=== PATIENT | female | born 1945 | race Caucasian/White ===

== ENCOUNTER 2018-05-09 12:35 | Outpatient (CLI) | payer MEDICARE | END 2018-05-09 12:36 | disposition home or self-care (01) | LOC: BICMAMMO 12:35 | PROVIDERS: ATTEND Family Medicine | DX: Z12.31 Encounter for screening mammogram for malignant neoplasm of breast (principal); R92.1 Mammographic calcification found on diagnostic imaging of breast | CPT/HCPCS: 77063; 77067 ==

== ENCOUNTER 2019-05-10 08:03 | Outpatient (CLI) | payer MEDICARE ==
--- NOTE | 2019-05-10 09:25 | MMO ---
Bilateral MAMMO Bilat Screen DDI+DREW. CLINICAL HISTORY: Patient is 73 years old and is seen for screening. The patient has no family history of breast cancer. The patient has no personal history of cancer. VIEWS: The views performed were: bilateral craniocaudal with tomosynthesis and bilateral mediolateral oblique with tomosynthesis. FILMS COMPARED: The present examination has been compared to prior imaging studies performed at [facility] on 10/16/2014, 11/26/2015, 01/28/2017 and 05/09/2018. This study has been interpreted with the assistance of computer-aided detection. MAMMOGRAM FINDINGS: There are scattered fibroglandular densities. There are stable benign appearing calcifications seen in both breasts. There are no suspicious masses, suspicious calcifications, or new areas of architectural distortion. IMPRESSION: THERE IS NO MAMMOGRAPHIC EVIDENCE OF MALIGNANCY. A ROUTINE FOLLOW-UP MAMMOGRAM IN 1 YEAR IS RECOMMENDED. THE RESULTS OF THIS EXAM WERE SENT TO THE PATIENT. ACR BI-RADS Category 2 - Benign finding MAMMOGRAPHY NOTE: 1. A negative mammogram report should not delay a biopsy if a dominant of clinically suspicious mass is present. 2. Approximately 10% to 15% of breast cancers are not detected by mammography. 3. Adenosis and dense breasts may obscure an underlying neoplasm. Reported by: NATTY ALVES MD Electonically Signed: [id number]
== END 2019-05-10 08:04 | disposition home or self-care (01) ==
LOC: BICMAMMO 08:03
PROVIDERS: ATTEND Family Medicine
DX: Z12.31 Encounter for screening mammogram for malignant neoplasm of breast (principal)
CPT/HCPCS: 77063; 77067

== ENCOUNTER 2019-07-04 15:08 | Outpatient (CLI) | payer MEDICARE ==
--- NOTE | 2019-07-04 15:38 | ULT ---
THYROID ULTRASOUND: 07/04/19 COMPARISON: None. HISTORY: Evaluate for thyroid cyst/nodule. TECHNIQUE: Multiplanar kirkland scale sonographic imaging of the thyroid gland obtained. FINDINGS: The thyroid isthmus measures 4 mm in AP dimension. The right lobe measures 3.9 x 2.1 x 1.2 cm and the left lobe measures 3.5 x 2.0 x 1.4 cm. No nodule is noted in the region of the right lobe of thyroid gland or the thyroid isthmus. There are three hypoechoic subcentimeter nodules within the left lobe of the thyroid gland measuring up to approximately5-6 mm. No dominant thyroid nodule is noted. IMPRESSION: TI-RADS 3 - mildly suspicious. As no nodule is greater than or equal to 1.5 cm, no further follow-up is recommended. POS: WILLA
== END 2019-07-04 15:09 | disposition home or self-care (01) ==
LOC: BICULT 15:08
PROVIDERS: ATTEND Clinical Nurse Specialist Medical-Surgical
DX: E04.1 Nontoxic single thyroid nodule (principal)
CPT/HCPCS: 76536

== ENCOUNTER 2020-01-05 09:45 | Inpatient (IN) | payer MEDICARE, OTHER ==
[2020-01-04 14:27] VITALS: BMI 36.1
[2020-01-05 12:10] LABS: Hemoglobin 13.9 g/dL (12.0-16.0); Mean Corpuscular HGB CONC 33.8 g/dL (32.0-36.0); Mean Corpuscular Hemoglobin 30.2 pg (27.0-31.0); Mean Corpuscular Volume 89.3 fL (78.0-98.0); Platelet Count 226 thou/uL (130-400); RBC Distribution Width 13.1 % (11.5-14.5); Red Blood Cell (RBC) Count 4.59 mill/uL (4.20-5.40); White Blood Cell (WBC) Count 6.5 thou/uL (4.8-10.8)
[2020-01-05 12:53] LABS: Anion Gap 15 mmol/L (10-20); BUN (Urea Nitrogen) 15 mg/dL (9.8-20.1); Calc. Creatinine Clearance 0 mL/min (70-130); Calcium 8.9 mg/dL (7.8-10.44); Carbon Dioxide 21 mmol/L (23-31); Chloride 105 mmol/L (98-107); Estimated GFR-MDRD 56; Glucose 130 mg/dL (83-110); Potassium 4.5 mmol/L (3.5-5.1); Sodium 136 mmol/L (136-145)
[2020-01-05 16:40] LABS: SARS-CoV-2 MS2 Positive; SARS-CoV-2 N Gene Negative; SARS-CoV-2 S Gene Negative; SARS-CoV-2 by NAA Not Detected (NotDetected); SARS-CoV-2 orf1ab Negative
[2020-01-10] MEDS ORDERED: Vancomycin 1 GM/200 ML BAG ONE (06:14)
[2020-01-10] MEDS ORDERED: Albumin 5% 500 ML ONE (06:31)
[2020-01-10] MEDS ORDERED: Fentanyl 250 MCG/5 ML VIAL ONE (06:42)
[2020-01-10] MEDS ORDERED: Dexmedetomidine 200 MCG/2 ML VIAL ONE (06:43)
[2020-01-10] MEDS ORDERED: Midazolam HCl 5 mg/5 ml Vial ONE (06:43)
[2020-01-10] MEDS ORDERED: Heparin 10,000 UNITS/1 ML VIAL 30,000 UNITS in Sodium Chloride 0.9% 1,000 ML FS SCH (06:45)
[2020-01-10] MEDS ORDERED: Ondansetron ODT 4 MG TAB ONE (07:07)
[2020-01-10] MEDS ORDERED: Midazolam HCl 2 mg/2 ml Vial ONE (07:07)
[2020-01-10] MEDS ORDERED: PHENYLEPHRINE-NS 100 MCG/ML 10 ML SYRINGE ONE (08:27)
[2020-01-10] MEDS ORDERED: Insulin Regular 300 UNITS/3 ML VIAL ONE ×2 (08:49→12:15)
[2020-01-10] MEDS ORDERED: Isosulfan Blue 50 MG/5 ML VIAL ONE (08:49)
[2020-01-10] MEDS ORDERED: Aminocaproic Acid 5 GM/20 ML VIAL ONE (10:08)
[2020-01-10] MEDS ORDERED: Glycopyrrolate 0.2 MG/ML 5 ML SYRINGE ONE (10:08)
[2020-01-10] MEDS ORDERED: Sodium Bicarb 50 MEQ/50 ML Abboject 8.4% SYRINGE ONE (10:08)
[2020-01-10] MEDS ORDERED: Calcium Chloride 1 GM/10 ML Abboject SYRINGE ONE (10:08)
[2020-01-10] MEDS ORDERED: Heparin 5,000 UNITS/ML VIAL ONE (10:08)
[2020-01-10] MEDS ORDERED: Norepinephrine 4 MG/4 ML VIAL ONE (10:08)
[2020-01-10] MEDS ORDERED: Cardioplegic Soln 1,000 ML BAG ONE (10:08)
[2020-01-10] MEDS ORDERED: Nitroglycerin 50 MG/250 ML BOT ONE (10:08)
[2020-01-10] MEDS ORDERED: Thrombin 5000 UNITS/5 ML VIAL ONE (10:08)
[2020-01-10] MEDS ORDERED: Protamine Sulfate 250 MG/25 ML VIAL ONE (10:08)
[2020-01-10] MEDS ORDERED: Vecuronium 10 MG VIAL ONE (10:08)
[2020-01-10] MEDS ORDERED: Heparin 30,000 units/30 ml VIAL ONE (10:08)
[2020-01-10] MEDS ORDERED: Papaverine 60 MG/2 ML VIAL ONE (10:08)
[2020-01-10] MEDS ORDERED: PROPOFOL 200 MG/20 ML VIAL ONE (10:08)
[2020-01-10] MEDS ORDERED: Potassium Chloride 60 MEQ/30 ML VIAL ONE (10:08)
[2020-01-10] MEDS ORDERED: Magnesium Sulfate 1 GM/2 ML VIAL ONE (10:08)
[2020-01-10] MEDS ORDERED: Lidocaine 1% PF 5 ML VIAL ONE (10:08)
[2020-01-10] MEDS ORDERED: Dexamethasone 20 MG/5 ML VIAL ONE (10:08)
[2020-01-10] MEDS ORDERED: Lidocaine 2% PF 100 mg/5 ml Syringe ONE (10:08)
[2020-01-10] MEDS ORDERED: Ondansetron PF 4 MG/2 ML Vial ONE (10:08)
[2020-01-10] MEDS ORDERED: niCARdipine 25 MG in Sodium Chloride 0.9% 250 ML 250 ML IVPB PRN (12:03)
[2020-01-10] MEDS ORDERED: Hetastarch 6% 500 ML 500 ML IVPB PRN (12:03)
[2020-01-10] MEDS ORDERED: Nitroglycerin 50 MG/250 ML BOT 250 ML IVPB PRN (12:03)
[2020-01-10] MEDS ORDERED: Potassium Chloride 20 MEQ/100 ML PREMIX BAG IVPB PRN (12:03)
[2020-01-10] MEDS ORDERED: Acetaminophen 325 MG TAB PO PRN (12:03)
[2020-01-10] MEDS ORDERED: Mag-Al 1200 mg/1200 mg/30 ML UDCUP PO PRN (12:03)
[2020-01-10] MEDS ORDERED: Post-Op Insulin Drip Protocol IVPB ONE (12:03)
[2020-01-10] MEDS ORDERED: Bisacodyl 5 MG TAB PO PRN (12:03)
[2020-01-10] MEDS ORDERED: Bisacodyl 10 MG SUPP PR PRN (12:03)
[2020-01-10] MEDS ORDERED: hydrALAZINE 20 MG/ML VIAL SLOW IVP PRN (12:03)
[2020-01-10] MEDS ORDERED: Guaifenesin DM 100-10/5 ML UDCUP PO PRN (12:03)
[2020-01-10] MEDS ORDERED: Fentanyl 100 MCG/2 ML VIAL SLOW IVP PRN ×2 (12:03)
[2020-01-10] MEDS ORDERED: Morphine 2 MG/ML VIAL SLOW IVP PRN (12:03)
[2020-01-10] MEDS ORDERED: DOPamine 400 MG/D5W 250 ML 250 ML IVPB PRN (12:03)
[2020-01-10] MEDS ORDERED: Norepinephrine 8 MG/0.9% NS 250 ML IVPB PRN (12:03)
[2020-01-10] MEDS ORDERED: Dextrose 50% Abboject 50 ML SYRINGE SLOW IVP PRN (12:21)
[2020-01-10] MEDS ORDERED: HUMULIN R 100 UNITS in Sodium Chloride 0.9% 100 ML IVPB SCH (12:21)
[2020-01-10] MEDS ORDERED: Dextrose 5% in Water 1,000 ML IV PRN (12:21)
[2020-01-10 12:26] LABS: #Lymphocytes 1.6 thou/uL (1.20-3.40); #Monocytes 0.7 thou/uL (0.11-0.59); %Basophils 0.3 % (0.0-1.0); %Eosinophils 0.3 % (0.0-10.0); %Lymphocytes 11.6 % (21.0-51.0); %Monocytes 5.1 % (0.0-10.0); %Neutrophils 82.6 % (42.0-75.0); Hemoglobin 10.6 g/dL (12.0-16.0); Mean Corpuscular HGB CONC 33.4 g/dL (32.0-36.0); Mean Corpuscular Hemoglobin 30.6 pg (27.0-31.0); Mean Corpuscular Volume 91.7 fL (78.0-98.0); Mean Platelet Volume 6.6 fL (7.4-10.4); Platelet Count 148 thou/uL (130-400); RBC Distribution Width 12.9 % (11.5-14.5); Red Blood Cell (RBC) Count 3.47 mill/uL (4.20-5.40); White Blood Cell (WBC) Count 13.3 thou/uL (4.8-10.8)
[2020-01-10 12:30] LABS: INR-International Normal Ratio 1.3; PTT 35.4 sec (22.9-36.1); Prothrombin Time 15.8 sec (12.0-14.7)
[2020-01-10] MEDS ORDERED: Magnesium 2 GM/50 ML 2 GM in Premix Bag 1 BAG IVPB SCH (12:30)
[2020-01-10 12:45] LABS: Anion Gap 12 mmol/L (10-20); BUN (Urea Nitrogen) 12 mg/dL (9.8-20.1); Calc. Creatinine Clearance 98 mL/min (70-130); Calcium 6.9 mg/dL (7.8-10.44); Carbon Dioxide 19 mmol/L (23-31); Chloride 112 mmol/L (98-107); Estimated GFR-MDRD 72; Glucose 145 mg/dL (83-110); Potassium 4.1 mmol/L (3.5-5.1); Sodium 139 mmol/L (136-145)
[2020-01-10] MEDS: Lactated Ringer's 1,000 ML IV SCH (12:45)
[2020-01-10] MEDS: Insulin Regular 300 UNITS/3 ML VIAL SC PRN (12:46)
[2020-01-10] MEDS: CEFAZOLIN 2 GM in Premix Bag 1 BAG IVPB SCH ×2 (12:52→21:37)
--- NOTE | 2020-01-10 12:53 | RAD ---
Portable frontal chest radiograph: 01/10/2020 COMPARISON: 09/19/2013 HISTORY: Evaluate chest following open heart surgery FINDINGS: New midline sternotomy wires. New mechanical cardiac valve. Right vascular catheter present , distal tip overlying the right atrium. Postsurgical drainage catheters overlie the mediastinum and left upper hemithorax. Supine imaging limits assessment for pneumothorax and pleural fluid. No lo bar consolidation or alveolar edema. IMPRESSION: Postoperative changes as detailed above.
[2020-01-10] MEDS: HYDROcodone/Acetaminophen 5/325 mg Tablet PO PRN ×2 (17:42→21:40)
[2020-01-10] MEDS: Vancomycin 1 GM in Premix Bag 1 BAG IVPB SCH (17:43)
[2020-01-10 18:33] LABS: Potassium 4.1 mmol/L (3.5-5.1)
--- NOTE | 2020-01-10 21:02 | EKG ---
Test Reason : POST CABG Blood Pressure : / mmHG Vent. Rate : 053 BPM Atrial Rate : 053 BPM P-R Int : 254 ms QRS Dur : 100 ms QT Int : 488 ms P-R-T Axes : 088 -14 005 degrees QTc Int : 457 ms Sinus bradycardia with sinus arrhythmia with 1st degree A-V block ST abnormality, possible digitalis effect Abnormal ECG No previous ECGs available Confirmed by Saul TRAMMELL ([id number]) on 01/10/2020 9:02:28 PM Referred By: MICHAEL Confirmed By:Saul TRAMMELL
[2020-01-10] MEDS: Famotidine/PF 20 mg/2ml Vial SLOW IVP SCH (21:37)
[2020-01-10] MEDS: Ondansetron PF 4 MG/2 ML Vial IVP PRN (21:47)
[2020-01-11] MEDS: Lactated Ringer's 1,000 ML IV SCH ×2 (02:36→15:42)
[2020-01-11 04:17] LABS: #Lymphocytes 0.8 thou/uL (1.20-3.40); #Monocytes 0.8 thou/uL (0.11-0.59); #Neutrophils 12.8 thou/uL (1.40-6.50); %Lymphocytes 5.3 % (21.0-51.0); %Monocytes 5.9 % (0.0-10.0); %Neutrophils 88.9 % (42.0-75.0); Hemoglobin 8.4 g/dL (12.0-16.0); Mean Corpuscular HGB CONC 33.6 g/dL (32.0-36.0); Mean Corpuscular Hemoglobin 30.5 pg (27.0-31.0); Mean Corpuscular Volume 90.8 fL (78.0-98.0); Mean Platelet Volume 7.8 fL (7.4-10.4); Platelet Count 164 thou/uL (130-400); RBC Distribution Width 13.2 % (11.5-14.5); Red Blood Cell (RBC) Count 2.75 mill/uL (4.20-5.40); White Blood Cell (WBC) Count 14.4 thou/uL (4.8-10.8)
[2020-01-11 04:36] LABS: Anion Gap 14 mmol/L (10-20); BUN (Urea Nitrogen) 20 mg/dL (9.8-20.1); Calc. Creatinine Clearance 69 mL/min (70-130); Calcium 7.6 mg/dL (7.8-10.44); Carbon Dioxide 19 mmol/L (23-31); Chloride 109 mmol/L (98-107); Estimated GFR-MDRD 45; Glucose 112 mg/dL (83-110); Sodium 138 mmol/L (136-145)
[2020-01-11] MEDS: Vancomycin 1 GM in Premix Bag 1 BAG IVPB SCH (05:17)
[2020-01-11] MEDS: CEFAZOLIN 2 GM in Premix Bag 1 BAG IVPB SCH (05:18)
[2020-01-11] MEDS: HYDROcodone/Acetaminophen 5/325 mg Tablet PO PRN ×4 (05:18→21:07)
[2020-01-11] MEDS: Ondansetron PF 4 MG/2 ML Vial IVP PRN (06:40)
[2020-01-11] MEDS ORDERED: Insulin Glargine 18 UNITS in Pre-Filled Syringe 1 EACH SC PRN (07:11)
[2020-01-11] MEDS: Aspirin Chewable 81 MG TAB PO SCH (08:20)
[2020-01-11] MEDS: Polyethylene Glycol 3350 17 GM Packet PO SCH (08:22)
[2020-01-11] MEDS: Famotidine/PF 20 mg/2ml Vial SLOW IVP SCH ×2 (08:22→21:08)
--- NOTE | 2020-01-11 08:51 | RAD ---
CHEST 1 VIEW: INDICATION: History of open heart surgery. COMPARISON: Prior exam dated 01/10/2020. FINDINGS: Left-sided thoracostomy tube, right subclavian central venous catheter, and mediastinal drain are sta ble-appearing. Midline sternotomy changes are stable. Cardiomegaly and mild pulmonary vascular fracisco estion persist. No lamont pleural effusion or pneumothorax evident. Osseous structures are similar-a ppearing. IMPRESSION: 1. Stable cardiomegaly and mild pulmonary vascular congestion. 2. Stable tubes and lines. POS: BH
--- NOTE | 2020-01-11 10:48 | OP ---
DATE OF PROCEDURE: 01/10/2020 DIAGNOSES: 1. Aortic valve stenosis. 2. Coronary artery disease. PROCEDURES PERFORMED: 1. Aortic valve replacement, #21 Inspiris bioprosthetic valve. 2. Coronary artery bypass graft, left internal mammary artery to left anterior descending. Saphenous vein was too poor of quality to utilize for bypass grafting the posterior descending artery. ASSISTANTS: 1. Dr. Stern. 2. Dr. Summers. DESCRIPTION OF PROCEDURE: After adequate anesthesia had been obtained, the patient was prepped and draped. Dr. Stern did an endovascular vein harvest of the left greater saphenous vein, which he had marked with ultrasound. I performed a simultaneous median sternotomy, harvesting the left internal mammary artery. Following heparinization, the mammary was divided distally. It was treated with papaverine. Aorta was cannulated above pericardial reflection and the right atrium was cannulated. The patient's heart appeared somewhat full and sluggish and EF was estimated to be 35% to 40% on COLBY down from a normal ventricle on an outpatient cath. Cardiopulmonary bypass was begun and a right superior pulmonary vein stump was placed. Following this, vessels were inspected for grafting. The aorta was crossclamped and a liter of [place] cardioplegic solution given through the aortic root. A catheter was placed in the pericardium and CO2 was insufflated. PDA was inspected. However, on inspecting the vein, it was a very poor quality and too thin-walled and small to sew to the aorta. For this reason, it was elected not to graft the PDA. The LAD was opened and the left internal mammary artery was anastomosed here. Following another 300 mL of cardioplegia, the aortic root was opened and the trileaflet valve was excised and calcium debrided. A 21 Sizer fit snugly. Ethibond sutures were placed with pledgets deep to the annulus in a mattress fashion and then the valve was seated and COR-KNOT was used to secure the valve. Following this, the aorta was closed with a double layer of 5-0 Prolene suture. CO2 was vented from the aortic root prior to completing the closure and then the vent was replaced in the aortic root. With the patient in the Trendelenburg position, the cross-clamp was removed. Temporary atrial and ventricular pacing wires were placed and atrial wires were utilized. Some arterial bleeding from the anterior right ventricle pacing wire was controlled with a Prolene suture. Following full rewarming, which was somewhat slow, adding about 30 minutes to the case, the patient was weaned from cardiopulmonary bypass. Cannula was removed and protamine given systemically with both cannulation sites being secured with a 5-0 Prolene suture. It should be noted the stump had been removed earlier and was hemostatic. The mediastinal and left pleural drains were placed, following which the sternum was reapproximated with #7 interrupted wire using vancomycin paste on the sternal edges, platelet-rich blood, and platelet-poor plasma. Subcutaneous tissue and skin were closed in layers. Job ID: [id number]
[2020-01-11] MEDS: Insulin Regular 300 UNITS/3 ML VIAL SC PRN ×3 (11:32→21:13)
--- NOTE | 2020-01-11 18:17 | PRG ---
DATE OF SERVICE: 01/11/2020 SUBJECTIVE: Ms. Duran is doing well. She is extubated, awake and alert. No complaints. OBJECTIVE: VITAL SIGNS: Blood pressure 129/51 earlier. Pulse is in the 80s and sinus. LUNGS: Clear. CARDIAC: Normal S1, normal S2. ABDOMEN: Soft, nontender. EXTREMITIES: Mild edema. ASSESSMENT: 1. Status post bypass surgery x1. 2. aortic valve replacement with bioprosthetic aortic valve, #21 bioprosthetic valve. The bypass was internal mammary to the LAD. PLAN: Plan will be to continue observation. Blood pressure medicines if needed. Job ID: [id number]
[2020-01-12] MEDS: HYDROcodone/Acetaminophen 5/325 mg Tablet PO PRN ×4 (03:21→22:31)
[2020-01-12 04:28] LABS: #Lymphocytes 2.3 thou/uL (1.20-3.40); #Monocytes 1.3 thou/uL (0.11-0.59); #Neutrophils 9.7 thou/uL (1.40-6.50); %Basophils 0.2 % (0.0-1.0); %Eosinophils 0.1 % (0.0-10.0); %Lymphocytes 17.1 % (21.0-51.0); %Neutrophils 72.6 % (42.0-75.0); Hemoglobin 7.9 g/dL (12.0-16.0); Mean Corpuscular HGB CONC 33.2 g/dL (32.0-36.0); Mean Corpuscular Volume 90.5 fL (78.0-98.0); Mean Platelet Volume 7.6 fL (7.4-10.4); Platelet Count 169 thou/uL (130-400); RBC Distribution Width 13.2 % (11.5-14.5); Red Blood Cell (RBC) Count 2.65 mill/uL (4.20-5.40); White Blood Cell (WBC) Count 13.4 thou/uL (4.8-10.8)
[2020-01-12 04:49] LABS: Anion Gap 14 mmol/L (10-20); BUN (Urea Nitrogen) 29 mg/dL (9.8-20.1); Calc. Creatinine Clearance 40 mL/min (70-130); Calcium 7.9 mg/dL (7.8-10.44); Carbon Dioxide 18 mmol/L (23-31); Chloride 102 mmol/L (98-107); Estimated GFR-MDRD 24; Glucose 128 mg/dL (83-110); Hemoglobin A1c 5.9 % (4.0-6.0); Potassium 4.2 mmol/L (3.5-5.1); Sodium 130 mmol/L (136-145)
[2020-01-12] MEDS ORDERED: Mineral Oil ENEMA PR PRN (07:07)
--- NOTE | 2020-01-12 07:43 | RAD ---
XR Chest 1 View Portable History: Open-heart surgery Comparison: Radiograph prior day Findings: Heart size mildly enlarged. Small to moderate left pleural effusion. The linear opacities w ithin the left upper lobe lingula and left lower lobe are similar. Mediastinal drains are similar. Subclavian central venous catheter tip is similar. Impression: Similar examination of the chest without worsening lung aeration.
[2020-01-12] MEDS: Polyethylene Glycol 3350 17 GM Packet PO SCH (08:38)
[2020-01-12] MEDS: Famotidine 20 MG TAB PO SCH ×2 (08:38→21:01)
[2020-01-12] MEDS: Aspirin 325 mg Enteric Coated Tablet PO SCH (08:38)
[2020-01-12] MEDS: Aspirin Chewable 81 MG TAB PO SCH (08:59)
--- NOTE | 2020-01-12 10:24 | PRG ---
DATE OF SERVICE: 01/12/2020 SUBJECTIVE: Ms. Duran is doing well. She is awake and alert. States she is feeling better. OBJECTIVE: VITAL SIGNS: Her blood pressure is 130 systolic, pulse is in the 80s and sinus. LUNGS: Clear. CARDIAC: Normal S1, normal S2. ABDOMEN: Soft, nontender. EXTREMITIES: There is no significant edema. ASSESSMENT: Status post aortic valve replacement and bypass surgery, doing well. PLAN: Continue cardiac rehab. to the telemetry later when bed is available. Job ID: [id number]
[2020-01-13] MEDS: HYDROcodone/Acetaminophen 5/325 mg Tablet PO PRN ×4 (02:20→23:39)
[2020-01-13 04:25] LABS: #Lymphocytes 1.4 thou/uL (1.20-3.40); #Monocytes 0.8 thou/uL (0.11-0.59); #Neutrophils 7.7 thou/uL (1.40-6.50); %Basophils 0.2 % (0.0-1.0); %Eosinophils 0.2 % (0.0-10.0); %Neutrophils 77.5 % (42.0-75.0); Hemoglobin 8.5 g/dL (12.0-16.0); Mean Corpuscular HGB CONC 33.1 g/dL (32.0-36.0); Mean Corpuscular Hemoglobin 29.6 pg (27.0-31.0); Mean Corpuscular Volume 89.4 fL (78.0-98.0); Mean Platelet Volume 7.9 fL (7.4-10.4); Platelet Count 151 thou/uL (130-400); RBC Distribution Width 13.5 % (11.5-14.5); Red Blood Cell (RBC) Count 2.88 mill/uL (4.20-5.40)
[2020-01-13 04:45] LABS: Anion Gap 13 mmol/L (10-20); BUN (Urea Nitrogen) 29 mg/dL (9.8-20.1); Calc. Creatinine Clearance 57 mL/min (70-130); Carbon Dioxide 18 mmol/L (23-31); Chloride 104 mmol/L (98-107); Estimated GFR-MDRD 36; Glucose 155 mg/dL (83-110); Potassium 4.6 mmol/L (3.5-5.1); Sodium 130 mmol/L (136-145)
[2020-01-13] MEDS: Aspirin 325 mg Enteric Coated Tablet PO SCH (09:49)
[2020-01-13] MEDS: Aspirin Chewable 81 MG TAB PO SCH (09:49)
[2020-01-13] MEDS: Famotidine 20 MG TAB PO SCH ×2 (09:49→21:12)
[2020-01-13] MEDS: Polyethylene Glycol 3350 17 GM Packet PO SCH (09:49)
[2020-01-13] MEDS ORDERED: Metoprolol Tartrate 25 MG TAB PO SCH ×2 (12:45→21:00)
[2020-01-13] MEDS ORDERED: Losartan 25 MG TAB PO SCH (21:00)
[2020-01-14 06:02] LABS: Anion Gap 14 mmol/L (10-20); BUN (Urea Nitrogen) 26 mg/dL (9.8-20.1); Calc. Creatinine Clearance 76 mL/min (70-130); Calcium 8.2 mg/dL (7.8-10.44); Carbon Dioxide 20 mmol/L (23-31); Chloride 105 mmol/L (98-107); Estimated GFR-MDRD 49; Glucose 151 mg/dL (83-110); Potassium 4.6 mmol/L (3.5-5.1); Sodium 134 mmol/L (136-145)
[2020-01-14] MEDS: HYDROcodone/Acetaminophen 5/325 mg Tablet PO PRN ×5 (07:11→23:57)
--- NOTE | 2020-01-14 07:55 | RAD ---
PORTABLE CHEST: HISTORY: Post CABG. COMPARISON: 01/12/20 FINDINGS: Mild cardiomegaly with postop sternotomy change. Stranding in the left apical region is again noted. Lungs otherwise appear clear and unchanged. There is evidence of mild left basilar atelectasis and po ssibly a small left effusion. Central line is unchanged and overlies the SVC. IMPRESSION: Stable chest findings. POS: AGW
[2020-01-14] MEDS: Famotidine 20 MG TAB PO SCH ×2 (10:09→19:58)
[2020-01-14] MEDS: Metoprolol Tartrate 25 MG TAB PO SCH ×2 (10:09→19:59)
[2020-01-14] MEDS: Aspirin 325 mg Enteric Coated Tablet PO SCH (10:09)
[2020-01-14] MEDS: Polyethylene Glycol 3350 17 GM Packet PO SCH (10:10)
[2020-01-14] MEDS: Losartan 25 MG TAB PO SCH (19:58)
[2020-01-14] MEDS ORDERED: Losartan 25 MG TAB PO SCH (21:00)
[2020-01-15] MEDS: HYDROcodone/Acetaminophen 5/325 mg Tablet PO PRN ×4 (03:49→20:54)
[2020-01-15 04:31] LABS: Anion Gap 14 mmol/L (10-20); BUN (Urea Nitrogen) 22 mg/dL (9.8-20.1); Calc. Creatinine Clearance 86 mL/min (70-130); Calcium 8.3 mg/dL (7.8-10.44); Carbon Dioxide 22 mmol/L (23-31); Chloride 106 mmol/L (98-107); Estimated GFR-MDRD 57; Glucose 140 mg/dL (83-110); Potassium 4.6 mmol/L (3.5-5.1); Sodium 137 mmol/L (136-145)
[2020-01-15] MEDS ORDERED: Amlodipine 5 MG TAB PO SCH ×2 (05:30→09:00)
[2020-01-15] MEDS ORDERED: cloNIDine 0.1 MG TAB PO PRN (05:31)
[2020-01-15] MEDS ORDERED: Furosemide 40 MG/4 ML VIAL SLOW IVP SCH (06:45)
[2020-01-15] MEDS: Famotidine 20 MG TAB PO SCH ×2 (08:01→20:54)
[2020-01-15] MEDS: Aspirin 325 mg Enteric Coated Tablet PO SCH (08:01)
[2020-01-15] MEDS: Metoprolol Tartrate 25 MG TAB PO SCH (08:02)
[2020-01-15] MEDS: Polyethylene Glycol 3350 17 GM Packet PO SCH (08:12)
[2020-01-15] MEDS: Furosemide 40 MG TAB PO SCH (10:50)
[2020-01-15] MEDS ORDERED: Furosemide 40 MG TAB PO SCH (11:00)
[2020-01-15] MEDS ORDERED: Spironolactone 100 MG TAB PO SCH (14:00)
--- NOTE | 2020-01-15 17:13 | PRG ---
DATE OF SERVICE: 01/15/2020 SUBJECTIVE: The patient has been hypertensive through the night, 170s and 180s. Her weight this morning is 241, and she states she weighed 245 prior to admission. She has no complaints. Walking twice a day with Physical Therapy and then walking to the bathroom on her own. Her lungs are clear to auscultation. Her chest incision looks good. Her leg incision is still weeping a bit of serous fluid with no significant bruising. PLAN: At this time is for an additional dose of Lasix, this time intravenous, and if her blood pressure is better controlled today, probably consider discharge tomorrow. Job ID: [id number]
--- NOTE | 2020-01-15 18:42 | PRG ---
DATE OF SERVICE: 01/15/2020 SUBJECTIVE: Roger' blood pressure is very high this morning in the 190 systolic range, now it is 150s. She has a lot of peripheral edema and has some oozing from the tissue in her thighs. OBJECTIVE: NECK: Neck veins are normal. Carotid normal upstrokes. LUNGS: Clear. CARDIAC: Normal S1, normal S2. ABDOMEN: Soft. Nontender. EXTREMITIES: There is some oozing of clear fluid from her thigh incisions related to edema. PLAN: 1. Agree with the extra dose of diuretics. We will add spironolactone. 2. I am going to go ahead and reduce the amlodipine back to 5 mg a day as I think she has long-term problem with edema. 3. Losartan. 4. Beta-arcadio. 5. Possibly home tomorrow if she is doing well. Job ID: [id number]
[2020-01-15 19:43] VITALS: TEMP 98.2
[2020-01-15] MEDS: Losartan 25 MG TAB PO SCH (20:54)
[2020-01-16] MEDS: HYDROcodone/Acetaminophen 5/325 mg Tablet PO PRN ×4 (00:42→12:45)
[2020-01-16 04:58] LABS: Anion Gap 15 mmol/L (10-20); BUN (Urea Nitrogen) 19 mg/dL (9.8-20.1); Calc. Creatinine Clearance 81 mL/min (70-130); Carbon Dioxide 24 mmol/L (23-31); Chloride 102 mmol/L (98-107); Estimated GFR-MDRD 53; Glucose 140 mg/dL (83-110); Potassium 4.1 mmol/L (3.5-5.1); Sodium 137 mmol/L (136-145)
[2020-01-16] MEDS ORDERED: Spironolactone 25 MG TAB PO SCH (08:00)
[2020-01-16] MEDS: Aspirin 325 mg Enteric Coated Tablet PO SCH (08:07)
[2020-01-16] MEDS: Famotidine 20 MG TAB PO SCH (08:07)
[2020-01-16] MEDS: Polyethylene Glycol 3350 17 GM Packet PO SCH (08:08)
[2020-01-16] MEDS: Furosemide 40 MG TAB PO SCH (08:08)
[2020-01-16] MEDS ORDERED: Amlodipine 5 MG TAB PO SCH (09:00)
[2020-01-16 11:11] VITALS: BP 148/70
--- NOTE | 2020-01-16 13:10 | PRG ---
DATE OF SERVICE: 01/16/2020 SUBJECTIVE: Ms. Duran is doing well. She is going to be released home. She had a good diuresis yesterday. OBJECTIVE: VITAL SIGNS: Blood pressure 148/70, pulse 72. LUNGS: Clear. CARDIAC: Normal S1, normal S2. EXTREMITIES: Still mild to moderate edema. ASSESSMENT: 1. Status post aortic valve replacement and bypass surgery. 2. Hypertension, improving. PLAN: She is going to go home on, 1. Furosemide 20 mg a day. 2. Amlodipine 5 mg a day. 3. Losartan 100 mg a day. 4. Metoprolol succinate 50 mg a day. 5. Spironolactone 25 mg a day. We will ask her to have a basic metabolic profile in a couple of weeks and to follow up with us in about 3 weeks. We will call her. Job ID: [id number]
--- NOTE | 2020-01-16 14:30 | DIS ---
DATE OF ADMISSION: 01/10/2020 DATE OF DISCHARGE: 01/16/2020 This is a 74-year-old female, who was brought to the hospital and underwent an aortic valve replacement on 01/09 with a #21 Inspiris bioprosthetic valve and a coronary artery bypass graft RUIZ to LAD. Saphenous vein was such quality that it was not felt to be usable for a PDA vein graft. Her 21 valve fit very snugly in her annulus. Her postoperative course was notable for initial blood pressures in the 90 to 100 range for the first 24 hours and that may have resulted in a slight elevation in her creatinine from a baseline of about 1 to a peak of about 2 and then this decreased then back towards 1. Her discharge weight was about 239 pounds compared with, what she stated was an admission weight of 245. She will be discharged home on her admitting medications plus a prescription for Toprol-XL 50 a day and spironolactone 25 a day. [place] prescription is pending. Discharge and followup instructions have been given. The patient's blood pressure is tending towards the elevated side and her medicines have been adjusted. Her amlodipine is only at 5 mg, but Dr. Mullen states that 10 mg has caused her lower extremity edema in the past. Job ID: [id number]
== END 2020-01-16 13:28 | disposition home or self-care (01) | DRG 221 ==
LOC: SURG A 01-10 06:09 → CCU 01-10 12:06 → 2NO 01-12 12:54
PROVIDERS: ADMIT Thoracic Surgery (Cardiothoracic Vascular Surgery); ATTEND Thoracic Surgery (Cardiothoracic Vascular Surgery)
PROC: 02RF08Z Replacement of Aortic Valve with Zooplastic Tissue, Open Approach (ICD-10-PCS; principal; 2020-01-10)
PROC: 02100Z9 Bypass Coronary Artery, One Artery from Left Internal Mammary, Open Approach (ICD-10-PCS; 2020-01-10)
PROC: 5A1221Z Performance of Cardiac Output, Continuous (ICD-10-PCS; 2020-01-10)
PROC: 30233N1 Transfusion of Nonautologous Red Blood Cells into Peripheral Vein, Percutaneous Approach (ICD-10-PCS; 2020-01-10)
DX: I35.0 Nonrheumatic aortic (valve) stenosis (principal); I25.10 Atherosclerotic heart disease of native coronary artery without angina pectoris; Z20.828 Contact with and (suspected) exposure to other viral communicable diseases; I10 Essential (primary) hypertension; E78.5 Hyperlipidemia, unspecified; J40 Bronchitis, not specified as acute or chronic; Z79.82 Long term (current) use of aspirin; Z79.51 Long term (current) use of inhaled steroids; Z79.899 Other long term (current) drug therapy
CPT/HCPCS: 36415; 36416; 36430; 71045; 80048; 83036; 85025; 85027; 85610; 85730; 86850; 86900; 86901; 87635; 93005; 93010; 93798; 94640; 94660; 97139; J0690; J1100; J1642; J1644; J1815; J1940; J2001; J2250; J2405; J2440; J2704; J2720; J3010; J3370; J3475; J3480; J3490; J7620; P9016; P9045; Q0162; Q9968; S0017; S0028; U0003

== ENCOUNTER 2020-05-22 09:44 | Outpatient (CLI) | payer MEDICARE ==
--- NOTE | 2020-05-22 11:23 | MMO ---
Bilateral MAMMO Bilat Screen DDI+DREW. CLINICAL HISTORY: Patient is 74 years old and is seen for screening. The patient has no family history of breast cancer. The patient has no personal history of cancer. VIEWS: The views performed were: bilateral craniocaudal with tomosynthesis and bilateral mediolateral oblique with tomosynthesis. FILMS COMPARED: The present examination has been compared to prior imaging studies performed at [facility] on 11/26/2015, 01/28/2017, 05/09/2018 and 05/10/2019. This study has been interpreted with the assistance of computer-aided detection. MAMMOGRAM FINDINGS: There are scattered fibroglandular densities. There are benign appearing calcifications seen in both breasts. There are no suspicious masses, suspicious calcifications, or new areas of architectural distortion. IMPRESSION: THERE IS NO MAMMOGRAPHIC EVIDENCE OF MALIGNANCY. A ROUTINE FOLLOW-UP MAMMOGRAM IN 1 YEAR IS RECOMMENDED. THE RESULTS OF THIS EXAM WERE SENT TO THE PATIENT. ACR BI-RADS Category 2 - Benign finding MAMMOGRAPHY NOTE: 1. A negative mammogram report should not delay a biopsy if a dominant of clinically suspicious mass is present. 2. Approximately 10% to 15% of breast cancers are not detected by mammography. 3. Adenosis and dense breasts may obscure an underlying neoplasm. Reported by: BALTAZAR SOMERS MD Electonically Signed: [id number]
== END 2020-05-22 09:45 | disposition home or self-care (01) ==
LOC: BICMAMMO 09:44
PROVIDERS: ATTEND Clinical Nurse Specialist Medical-Surgical
DX: Z12.31 Encounter for screening mammogram for malignant neoplasm of breast (principal)
CPT/HCPCS: 77063; 77067

== ENCOUNTER 2021-06-09 11:26 | Outpatient (CLI) | payer MEDICARE | END 2021-06-09 11:27 | disposition home or self-care (01) | LOC: BICMAMMO 11:26 | PROVIDERS: ATTEND Clinical Nurse Specialist Medical-Surgical | DX: Z12.31 Encounter for screening mammogram for malignant neoplasm of breast (principal) | CPT/HCPCS: 77063; 77067 ==

== ENCOUNTER 2022-02-22 18:13 | Emergency (ER) | payer MEDICARE ==
[2022-02-22] MEDS ORDERED: Aspirin Chewable 81 MG TAB ONE ×2 (18:40)
[2022-02-22] MEDS ORDERED: Labetalol HCl 100 MG/20 ML VIAL ONE ×2 (18:41→18:43)
[2022-02-22 18:56] LABS: Bacteria/HPF None Seen HPF (None Seen); Bilirubin Negative (Negative); Blood, Urine Negative (Negative); Clarity Clear (Clear); Glucose, Urine (Dipstick) Normal (Negative); Ketone, Urine Negative (Negative); Leukocyte 25 Leu/uL (Negative); Nitrite Negative (Negative); Protein, Urine (Dipstick) Negative (Neg-Trace); RBC/HPF 0-3 HPF (0-3); Specific Gravity, Urine 1.007 (1.002-1.036); Squamous Epithelial 0-3 HPF (0-3); Urobilinogen Normal mg/dL (Less than 2); pH, Urine 6.5 (5.0-9.0)
[2022-02-22 19:07] LABS: #Basophils 0.1 thou/uL (0.0-0.2); #Lymphocytes 2.1 thou/uL (1.20-3.40); #Monocytes 0.6 thou/uL (0.11-0.59); #Neutrophils 3.2 thou/uL (1.40-6.50); %Basophils 1.1 % (0.0-1.0); %Eosinophils 0.7 % (0.0-10.0); %Lymphocytes 34.7 % (21.0-51.0); %Monocytes 10.5 % (0.0-10.0); Hemoglobin 12.3 g/dL (12.0-16.0); Mean Corpuscular HGB CONC 33.9 g/dL (32.0-36.0); Mean Corpuscular Hemoglobin 30.8 pg (27.0-31.0); Mean Platelet Volume 6.4 fL (7.4-10.4); Platelet Count 211 thou/uL (130-400); RBC Distribution Width 12.7 % (11.5-14.5); Red Blood Cell (RBC) Count 4.01 mill/uL (4.20-5.40); White Blood Cell (WBC) Count 6.1 thou/uL (4.8-10.8)
[2022-02-22 19:28] LABS: ALT (SGPT) 20 U/L (8-55); AST (SGOT) 21 U/L (5-34); Albumin 3.8 g/dL (3.4-4.8); Alkaline Phosphatase 69 U/L (40-110); Anion Gap 15 mmol/L (10-20); BUN (Urea Nitrogen) 15 mg/dL (9.8-20.1); Bilirubin, Total 0.6 mg/dL (0.2-1.2); Calc. Creatinine Clearance 0 mL/min (70-130); Calcium 9.2 mg/dL (7.8-10.44); Carbon Dioxide 18 mmol/L (23-31); Chloride 108 mmol/L (98-107); Estimated GFR 68; Globulin 3.2 g/dL (2.4-3.5); Glucose 146 mg/dL (83-110); Potassium 3.8 mmol/L (3.5-5.1); Sodium 137 mmol/L (136-145)
[2022-02-22] MEDS ORDERED: Amlodipine 5 MG TAB ONE (19:41)
== END 2022-02-22 19:40 | disposition home or self-care (01) ==
LOC: ERS 18:13
DX: I10 Essential (primary) hypertension (principal); K21.9 Gastro-esophageal reflux disease without esophagitis
CPT/HCPCS: 36415; 71045; 80053; 81003; 81015; 83880; 84484; 85025; 93005; 94760; 96374

== ENCOUNTER 2022-08-18 08:07 | Outpatient (CLI) | payer MEDICARE | END 2022-08-18 08:08 | disposition home or self-care (01) | LOC: RAD 08:07 | PROVIDERS: ATTEND Internal Medicine Critical Care Medicine | DX: R06.00 Dyspnea, unspecified (principal) | CPT/HCPCS: 71046 ==

== ENCOUNTER 2024-03-23 08:20 | Outpatient (CLI) | payer MEDICARE | END 2024-03-23 08:21 | disposition home or self-care (01) | LOC: BICMAMMO 08:20 | PROVIDERS: ATTEND Registered Nurse Hospice | DX: Z12.31 Encounter for screening mammogram for malignant neoplasm of breast (principal) | CPT/HCPCS: 77063; 77067 ==